=== PATIENT | female | born 1960 | race Caucasian/White ===

== ENCOUNTER 2020-09-13 05:45 | Inpatient (IN) | payer OTHER ==
[~2020-09-13] VITALS: Ht 165.1 cm; Wt 77.3 kg
[~2020-09-13 05:45] MED LIST: CAL MAG ZINC +1 EAC1 PO; FISH OIL 1,001000 MG PO; GALZIN50 MG PO; HAIR, SKIN & N1 EACH PO; LIPOTRIAD VISI1 EAC1 PO; METAFOLBIC TAB1 EACH PO; PRILOSEC OTC20 MG PO
--- NOTE | 2020-09-13 09:43 | NUR ---
09/13/20 0943 Olga Sigala 0934- PT TO PACU IN SUPINE POSITION EYES CLOSED WITH ORAL AIRWAY IN PLACE. PT DOES NOT RESPOND TO VERBAL STIMULI. BREATHING EASY AND UNLABORED. SPO2 >95% ON 6 L O2 VIA SIMPLE MASK. REPORT RECEIVED FROM FRIDA. 0942- PT CONTINUES TO SLEEP IN SUPINE POSITION WITH ORAL AIRWAY IN PLACE. BREATHING EASY AND UNLABORED. SPO2 >95% ON 6 L O2 VIA SIMPLE MASK. VSS.
--- NOTE | 2020-09-13 11:19 | NUR ---
PT IS BACK TO DS FROM PACU. SHE IS EMOTIONAL UPON HER RETURN. IS AT THE BEDSIDE. CALL LIGHT WITHIN REACH. WATER ON BEDSIDE TABLE. NO ADDITIONAL NEEDS AT THIS TIME.
--- NOTE | 2020-09-13 13:12 | NUR ---
PATIENT IS RESTING IN BED, ON ROOM AIR 100% VITALS ARE WITHIN PARAMETERS. PATIENT IS REPORTING 7/10 MID ABDOMINAL POST OP PAIN AND 800MG PO IBUPROFEN GIVEN WITH 2MG OF IV MORPHINE. LOWER MID-ABD INCISIONS IN INTACT WITH OCCLUSIVE SURGICAL DRESSING AND SEVERAL SMALL SPOTS OF RED DRAINAGE. PATIENT IS OTHERWISE RESTING WELL. IVF CHANGED TO IV PUMP AND IS LR @ 125. PATIENT DENIES OTHER NEEDS, PLAN TO ADVANCE DIET, CURRENTLY HAVING JELLO AND CRACKERS.
--- NOTE | 2020-09-13 14:00 | NUR ---
Spoke with Eduarda. She resides in [facility] with her spouse. They are Hay growers. Spouse is in down season and will stay home with her. She states she is very active. No DME. Plans on dc to home with her spouse.
--- NOTE | 2020-09-13 14:35 | NUR ---
WHILE CHECKING ON PT, PT STATED THAT SHE WAS HAVING RIGHT UPPER QUADRANT PAIN. PT STATES THAT THERE IS RARE PAIN IN HER LOWER ABDOMEN NEAR THE SURGICAL SITE. THIS RN ASSISTED PT WITH A FRONT WHEEL WALKER TO DO THREE LAPS IN PTS ROOM. PT TOLERATED WELL BUT THERE WAS ONLY A SLIGHT IMPROVEMENT IN GAS PAIN. THIS RN WILL RETURN WITH MEDS FOR PT
--- NOTE | 2020-09-13 14:45 | NUR ---
THIS RN IN PTS ROOM TO CHECK ON PT. PT STATES THAT SHE IS HAVING RIGHT UPPPER QUADRANT PAIN THAT FEELS SHARP. PT STATES THAT THE PAIN GETS BETTER WHEN SHE STRETCHES HER ARMS UP. THIS RN PROVIDED PT WITH GAS PAIN MEDS AND 1 PERCOCET. THIS RN PROVIDED PT WITH MORE WATER AND SNACKS
--- NOTE | 2020-09-13 16:25 | NUR ---
THIS RN IN PTS ROOM TO REASSESS PTS PAIN. PT STATES THAT HER PAIN IS MUCH MORE IMPROVED, PT STATES THAT SHE WAS ACUTALLY ABLE TO RELAX ENOUGH TO GET SOME SLEEP. THIS RN PROVIDED PT WITH ANOTHER HEAT PAD AND ANOTHER PILLOW FOR COMFORT.
--- NOTE | 2020-09-13 19:20 | NUR ---
SHIFT REPORT RECEIVED FROM ENRIQUE KNOWLES. PT RESTING IN BED, WATCHING TV. NO NEEDS AT THIS TIME.
--- NOTE | 2020-09-13 21:06 | NUR ---
PT ASSESSMENT COMPLETED. PRN PAIN MEDS PROVIDED FOR 8/10 ABD PAIN.SCHEDULED MEDS PROVIDED. MIDLINE INCISION HAS SEVERAL DRY AREAS OF BLOOD, WNL. PT STATES ABD MODERATELY DISTENDED. BOWEL TONES ACTIVE. XIE WNL. IV WNL, CDI, FLUSHED WELL. PT UP TO CHAIR. XIE EMPTIED. NO OTHER NEEDS AT THIS TIME. CALL LIGHT IN REACH.
--- NOTE | 2020-09-13 21:30 | NUR ---
PT CALLED D/T BEEPING IV PUMP, NEW BAG OF LR IS NOW INFUSING. PT DENIES FURTHER NEEDS. CALL LIGHT IS CLOSE.
--- NOTE | 2020-09-13 22:55 | NUR ---
PATIENT AMBULATED ONCE AROUND NURSE'S STATION LOOP. SBA WITH FWW. PATIENT WAS STABLE ON HER FEET, BUT SLOW DUE TO PAIN IN BOTH HER ABDOIMINAL AREA AND HER LEFT SHOLDER. PATIENT WAS ASSISTED BACK TO BED WITH BLANKETS FOR WARMTH, WARM COMPRESSES, AND A FRESH ICE WATER WAS GIVEN. PATIENT ASKED IF SHE COULD HAVE ANY MORE PAIN MEDICATION. BENSON RENTERIA NOTIFIED THAT PAIN MEDS WERE REQUESTED. CALL LIGHT IN REACH. NO OTHER NEEDS AT THIS TIME.
--- NOTE | 2020-09-14 00:06 | NUR ---
PT RESTING IN BED, EYES CLOSED. RR EVEN, UNLABORED. IV FLUIDS INFUSING PER ORDER. CALL LIGHT IN REACH.
--- NOTE | 2020-09-14 02:49 | NUR ---
ASSESSMENT COMPLETED. PT ABD PAIN /, PRN PAIN MEDS PROVIDED. MIDLINE INCISION HAS SCANT NEW BLOOD ON BANDAGE. MODERATE ABD DISTENTION, TENDER, BOWEL TONES ACTIVE. PT STATES SHE IS PASSING FLATUS. CMS INTACT. LUNGS CLEAR, HEART TONES REGULAR. JAY PALM IN ROOM TO TAKE VS AND I&O.
--- NOTE | 2020-09-14 03:37 | NUR ---
PT RESTING IN BED, EYES CLOSED. RR EVEN, UNLABORED. IV FLUIDS INFUSING PER ORDER. CALL LIGHT IN REACH.
--- NOTE | 2020-09-14 05:48 | NUR ---
SCHEDULED MED PROVIDED. VS AND I&O COMPLETED. ORJAS REMOVED WNL PER ORDER. NO OTHER NEEDS AT THIS TIME. CALL LIGHT IN REACH.
--- NOTE | 2020-09-14 07:30 | NUR ---
Shift report from Mariel KNOWLES included: Pt had an uneventful evening. Post surgery, midline dressing removed and incision site is now open to air. Pts oneill was also removed early this morning and pt is due to void. Pt is currently in bed, breathing even and unlabored, table and call light within reach.
--- NOTE | 2020-09-14 09:00 | NUR ---
Med pass and assessment completed, VSS, see charting. Pt able to take all meds without difficulty. Pt in bed, finishing breakfast, denies nausea and other needs at this time. Pt has call light and table within reach.
--- NOTE | 2020-09-14 10:00 | NUR ---
Rounding. Pt reports tolerable pain and no nausea. Pt getting up to chair. Pt denies needs at this time. Table and call light within reach.
--- NOTE | 2020-09-14 11:00 | NUR ---
Spoke with patient, she is walking in the stafford. States she is feeling great. No change in plan for dc.
--- NOTE | 2020-09-14 11:50 | NUR ---
This RN to room to assist ELEVATORS INSPECTOR in setting up heating pack device for pt. Pt was just up to ambulate and was able to walk once around the nurses stations. Pt up to chair, positioned to comfort. Pt given blanket, heating pad, fresh water, and hot tea as ordered. Pt denies further needs at this time. Pt in chair, table and call light within reach.
--- NOTE | 2020-09-14 13:37 | NUR ---
Rounding. Pt up to bathroom, New fluids hung. Pt back to chair, positioned to comfort. Table and call light within reach.
[2020-09-14] MEDS ORDERED: VITAMIN E200 UNI2 PO (16:16)
--- NOTE | 2020-09-14 16:17 | NUR ---
MED REC COMPLETE
--- NOTE | 2020-09-14 16:31 | NUR ---
Pt given PRN pain med for 5/10 pain in her abdomen. Pts midline dressing is still intact, moderate amount of darker red drainage along the dressing, not saturated through. Pt denies nausea at this time. Pt up in room, per request, table and call light within reach.
--- NOTE | 2020-09-14 19:05 | NUR ---
SHIFT REPORT RECEIVED FROM IZAIAHAZCEASAR NASCIMENTO AT BEDSIDE. pt AWAKE AND RESTING IN BED, IN ROOM. MIDLINE DRESSING INTACT, MILD SEROSANGUINEOUS SHADOWING NOTED, pt DENIES NAUSEA OR NEEDS. CALL LIGHT IN REACH, BOARD UPDATED.
--- NOTE | 2020-09-14 20:59 | NUR ---
PT CALLED AFTER USING THE RESTROOM. WALKED 2 LAPS AROUND THE BONILLA WITH HER SBA WITH FWW. ADMINISTERED 2 PERCOCET FOR 7/10 PAIN. PT STATES SHE FEELS THE GAS MOVING AROUND AND SOME BURNING SENSATION. ADMINISTERED HER SCHEDULED HEPARIN WELL. SHE IS TUCKED INTO BED WITH FRESH WATER AND VS & 1&O'S ENTERED. SCD'S ARE IN PLACE AND CALL LIGHT IS CLOSE. PT DENIES FURTHER NEEDS.
--- NOTE | 2020-09-14 22:00 | NUR ---
ASSESSMENT COMPLETE, SCHEDULED MOTRIN GIVEN (SEE EMAR). MIDLINE INCISION INTACT, FOAM DRESSING IN PLACE. MILD TO MODERATE SEROSANGUINEOUS SHADOWING NOTED, pt REPORTS TOLERABLE PAIN. DENIES NAUSEA. VSS, CALL LIGHT IN REACH.
--- NOTE | 2020-09-14 23:06 | NUR ---
pt used call light to ask for assistance into restroom, SBA, voided 1000ccs of clear, yellow urine. pt states she is having gas bubble pain, no further needs at this time.
--- NOTE | 2020-09-15 00:05 | NUR ---
ROUNDED ON pt, pt AWAKE AND DENIES NEEDS OR CONCERNS. CALL LIGHT IN REACH.
--- NOTE | 2020-09-15 04:00 | NUR ---
rounding on pt, pt reports increasing 4/10 pain, prn pain medication given (see emar). no changes to abd dressing, pt denies nausea. up sba to void and back in bed. fresh water at bedsdie. no further needs, call light in reach.
--- NOTE | 2020-09-15 06:19 | NUR ---
SCHEDULED MOTRIN GIVEN FOR 3/10 PAIN, SEE EMAR. NO FURTHER NEEDS, CALL LIGHT IN REACH.
--- NOTE | 2020-09-15 06:26 | NUR ---
IN TO ASST PT TO THE TOILET, 1PA/SBA, TOLERATES WELL WITH SOME SORENESS, NO FURTHER NEEDS AT THIS TIME, PT IS BACK IN BED
--- NOTE | 2020-09-15 09:00 | NUR ---
PT UP IN ROOM, ATE 100% OF BREAKFAST, NO NAUSEA, REPORTS GOOD PAIN CONTROL, OCCASIONAL ABD CRAMPING BUT IS NOW PASSING GAS. HOPES TO GO HOME THIS MORNING, IN GOOD SPIRITS, DENIES FURTHER NEEDS.
[2020-09-15] MEDS ORDERED: IBUPROFEN800 MG PO (10:20)
[2020-09-15] MEDS ORDERED: TYLENOL EXTRA500 MG PO (10:22)
[2020-09-15] MEDS ORDERED: OXYCODONE HCL5 MG PO (10:24)
[2020-09-15] MEDS ORDERED: ZOFRAN4 MG PO (10:26)
[2020-09-15] MEDS ORDERED: COLACE100 MG PO (10:27)
--- NOTE | 2020-09-15 10:56 | NUR ---
DR PHELAN WAS IN TO SEE PT, DISCHARGE ORDERS TO HOME NOTED.
--- NOTE | 2020-09-15 11:30 | NUR ---
SBA INTO SHOWER, TOLERATED WELL.
--- NOTE | 2020-09-15 14:17 | NUR ---
DISCHARGE INSTRUCTIONS REVIEWED WITH PATIENT, VERBALIZES UNDERSTANDING OF MEDICATIONS, SX TO REPORT AND FOLLOWUP APPOINTMENT, PHARMACY WAS ALSO IN AND SPOKE WITH PT. SHE IS IN GOOD SPIRITS, EXCITED TO GO HOME. CALLED FOR [facility] HOME, SCHEDULED IBUPROFEN GIVEN AND OXYCODONE FOR 6/10 PAIN. DENIES NAUSEA. TAKING FLUIDS WELL.
--- NOTE | 2020-09-19 07:50 | OR ---
[facility] [address], [place] [address] Signed DATE OF OPERATION: 09/13/2020 SURGEON: Paco Millan MD DIESEL LOCOMOTIVE CRANE OPERATOR: Demetri Elder DO PREOPERATIVE DIAGNOSIS: Right adnexal mass. POSTOPERATIVE DIAGNOSIS: Right adnexal mass with pelvic and abdominal adhesions. PROCEDURE: Laparoscopy, laparotomy, bilateral salpingo-oophorectomy, lysis of adhesions. ANESTHESIA: General ET. ESTIMATED BLOOD LOSS: 50 mL. DRAINS: Fountain catheter. INDICATIONS AND FINDINGS: The patient is a 60-year-old female 3, para 3, status post TVH many years ago for vaginal prolapse, who presented after a long absence of [facility] care of approximately 7 years and was found to have a large right adnexal mass. It appeared to be fairly simple on ultrasound and CT with a few fine septations. There was no evidence of any ascites or omental caking on her CT as well. Her CA-125 was normal. It was felt that possibly this could be addressed laparoscopically. At the time of surgery, exam under anesthesia revealed the ovary to be enlarged and actually above the umbilicus on the right side approximately 3 cm above. It was fairly mobile. On laparoscopy, there were adhesions of the omentum superiorly to the ovary, which were fairly fine as well as thick adhesions to the vaginal cuff on the right side. It was extremely large. The left The left ovary was tiny, approximately 1.5 cm in size. There were adhesions of the sigmoid to the vaginal cuff as well. There was no ascites present. There was no evidence of any other seeding. The surface of the right ovary was completely smooth. It did not rupture during surgery and was delivered intact. Electronically Signed By: PACO MLILAN MD 09/19/20 0750 PATIENT NAME: CARMINE WHITMORE OPERATIVE REPORT DATE OF : 64 REPORT #: [id number] PHYSICIAN: PACO MILLAN MD PCP: HUGO FLOOD MD REPORT IS CONFIDENTIAL AND NOT TO BE RELEASED WITHOUT AUTHORIZATION [facility] [address], [place] [address] Signed DESCRIPTION OF PROCEDURE: The patient was prepped and draped in the dorsal lithotomy position. A Fountain catheter was placed and a sponge stick placed in the vagina. Attention was directed above. The infraumbilical area was injected with 0.5% Marcaine plain. An incision was made with a knife and each layer serially elevated and incised until the fascia was opened and identified and stay sutures were placed. The peritoneum was opened bluntly. The scope was then placed after placement of Jad. The abdomen was then insufflated with carbon dioxide gas. The abdomen was appropriately distended. The pelvis and abdomen were evaluated and the extensive adhesions noted. It was felt that given the size and the amount of adhesions that an open procedure would be a better option with less chance of any rupture. Washings were obtained via the Jad. Following this, the Jad was removed and a midline incision was made with a knife. It was carried down through the fascia. The incision was extended superiorly and inferiorly. Muscles were already and the peritoneum was opened and the incision extended superiorly and inferiorly. Following this, the adhesions superiorly were lysed. The Praveen retractor was then placed and the patient's right infundibulopelvic ligament was identified and grasped with curved Z clamps x2. It was then divided. This was followed by free tie of 0 Vicryl followed by suture ligature of 0 Vicryl on the infundibulopelvic ligament. The ovarian side was suture ligated as well. The peritoneal adhesions were then taken on the lateral aspect down to the vaginal cuff. The adhesions were sharply lysed as well at the cuff. Following this, the ovary could be removed intact. The patient's right infundibulopelvic ligament was re-evaluated, there was some oozing around this. This area was regrasped with a Tonsil and right angle and free tied with another 0 Vicryl suture. The ureter was evaluated and found to be below and not compromised by the suture. Attention was then directed to the patient's left side. The adhesions of the sigmoid to the cuff and the pelvic sidewall were lysed sharply using the Metzenbaum scissors. The ovary itself was then seen. It was very small with a normal tube as well. The infundibulopelvic ligament was isolated, identified, and a window placed in the peritoneum. The infundibulopelvic ligament was then grasped x2 with curved Z clamps and divided. This was followed by free tie of 0 Vicryl followed by suture ligature of 0 Vicryl. Following this, the ovary itself could be peeled off the pelvic sidewall with sharp dissection. Following this, the abdomen was copiously irrigated and inspected and bleeding points on the raw areas were controlled with cautery. There was some bleeding in the space of Retzius, which responded to [id number] sutures of 2-0 chromic. There was quite a bit of raw area present just because of the extensive adhesions and Tisseel was sprayed over the vaginal cuff and at the sidewalls to aid in hemostasis. Following this, preparations were made for closure. The retractor was removed as were the lap tapes. The peritoneum was identified and closed with a running suture of 3-0 Vicryl. The muscles were not reapproximated. The fascia was closed from each end to the midline with a running suture of 0 PDS. The subcu tissue was irrigated, inspected and bleeding points were controlled with cautery. The skin edges were brought Electronically Signed By: PACO MILLAN MD 09/19/20 0750 PATIENT NAME: CARMINE WHITMORE OPERATIVE REPORT DATE OF : 64 REPORT #: [id number] PHYSICIAN: PACO MILLAN MD PCP: HUGO FLOOD MD REPORT IS CONFIDENTIAL AND NOT TO BE RELEASED WITHOUT AUTHORIZATION [facility] [address] [place] [id number] Signed together with interrupted sutures of 3-0 Vicryl. The skin was closed with nathaly. Following this, the vaginal sponge stick was removed. All sponge and needle counts were correct though a follow up abdominal/pelvic X Ray was done as there was a miscount on the needle drivers. There was no evidence of any retained instruments. She tolerated the procedure well and was taken to the recovery room in good condition. Paco Millan MD PJW/CHERELLE /[id number] cc: Dr. Clif Elder DO Copies: DEMETRI ELDER DO ~ Electronically Signed By: PACO MILLAN MD 09/19/20 0750 PATIENT NAME: CARMINE WHITMORE OPERATIVE REPORT DATE OF : 64 REPORT #: [id number] PHYSICIAN: PACO MILLAN MD PCP: HUGO FLOOD MD REPORT IS CONFIDENTIAL AND NOT TO BE RELEASED WITHOUT AUTHORIZATION
--- NOTE | 2020-09-19 09:18 | PATH ---
[facility] [address] [id number] Signed ORDERING PHYSICIAN: Valeria Millan MD PATIENT NAME: CARMINE WHITMORE GENDER: F : 1960 SPECIMEN(S): A ABDOMINAL WASHINGS GROSS DESCRIPTION: 70 ML OF CLEAR, COLORLESS FLUID IN CYTOLYT CLINICAL HISTORY: NO CLINICAL DATA PROVIDED LABORATORY PREPARATIONS: 1 MONOLAYER CYTOLOGIC INTERPRETATION: Pelvic washing: Negative for malignant cells. DESCRIPTION: The preparations contain mesothelial cells and rare inflammatory cells. Atypical cytologic findings are not encountered. SPECIMEN ADEQUACY: Satisfactory for Evaluation PERFORMING LABORATORY: Technical preparation was performed by [facility], [address] [place] [address] (Refuse Driver: Rogelio Miranda D.O.; CLIA#: [id number]). Professional interpretation was performed by [facility], [address] [address] (Refuse Driver: Jamaica Rolon MD; CLIA# [id number]). Diagnostician: Cici LEBLANC ([facility] Electronic Field Service Engineer Diagnostician: Jamaica Rolon MD Pathologist Electronically Signed 09/18/2020 Copies: PATIENT NAME: CARMINE WHITMORE PATHOLOGY DATE OF : 64 REPORT #: [id number] PHYSICIAN: JEAN PATHOLOGY PCP: HUGO FLOOD MD REPORT IS CONFIDENTIAL AND NOT TO BE RELEASED WITHOUT AUTHORIZATION [address] [place] [address] Signed ~ PATIENT NAME: CARMINE WHITMORE PATHOLOGY DATE OF : 64 REPORT #: [id number] PHYSICIAN: JEAN PATHOLOGY PCP: HUGO FLOOD MD REPORT IS CONFIDENTIAL AND NOT TO BE RELEASED WITHOUT AUTHORIZATION
--- NOTE | 2020-09-19 10:19 | PATH ---
[facility] [address], [place] [address] Signed SPECIMEN(S): A RIGHT OVARY AND TUBE SPECIMEN(S): B LEFT OVARY AND TUBE SPECIMEN SOURCE: A. RIGHT OVARY AND TUBE B. LEFT OVARY AND TUBE CLINICAL HISTORY: Laparoscopy with removal right ovarian mass and left ovary. FINAL PATHOLOGIC DIAGNOSIS: A. 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 - Fallopian tube with paratubal cyst. B. Ovary and fallopian tube, left, salpingo-oophorectomy: - Ovary with endosalpingiosis and surface fibrous adhesions. - Fallopian tube with no histopathologic abnormality. COMMENT: As part of [facility]' Quality Improvement Program, selected slides of this case were reviewed by another member of our pathology staff. NAL:NRT:cml:C2NR MICROSCOPIC EXAMINATION: Histologic sections of all submitted blocks are examined by light microscopy. These findings, together with the gross examination, support the pathologic diagnosis. GROSS DESCRIPTION: Two specimens are received in two containers, labeled "LV." A. The specimen, labeled "LV, right ovary and tube," is received in formalin and consists of ovary with attached fallopian tubes. The ovary weighs 2350 grams. The serosal surface is pink-sung, smooth and fluctuating. Specimen measures 23 x 17.5 x 17.0 cm. Sectioning through the specimen reveals a cyst that measures 22 cm in greatest dimension. The cyst is filled with a clear fluid. The inner surface of the cyst is smooth. No papillary excrescences are grossly identified. Within the larger cyst is a smaller clear fluid-filled cyst, 4.2 cm in greatest dimension. The inner surface of the smaller cyst is smooth. The fallopian tube shows fimbria and violaceous and smooth serosa. It measures 9.5 cm in length and 0.6 cm in diameter. PATIENT NAME: CARMINE WHITMORE PATHOLOGY DATE OF : 64 REPORT #: [id number] PHYSICIAN: JEAN PATHOLOGY PCP: HUGO FLOOD MD REPORT IS CONFIDENTIAL AND NOT TO BE RELEASED WITHOUT AUTHORIZATION [facility] [address], [place] [address] Signed Sectioning through the tube is unremarkable. Security Strategist sections are submitted as follows: (A1) Larger cyst wall (A2) Smaller cyst wall, fallopian tube Additional sections of ovarian cyst and fallopian tube fimbria are submitted in three additional cassettes (A3-A5) per Dr. Rolon request. MEDARDO (under the direct supervision of a pathologist) B. The specimen, labeled "LV, left ovary and fallopian tube," is received in formalin and consists of ovary with attached fallopian tube. The ovary measures 2.2 x 1.5 x 0.7 cm. The serosal surface is yellow-sung, smooth. Sectioning through the ovary reveals yellow-sung, homogenous tissue. Fallopian tube shows fimbria and violaceous and smooth serosa. It measures 3.5 x 0.7 cm. Security Strategist sections are submitted in cassettes (B1-B2). MEDARDO (under the direct supervision of a pathologist) The Gross Description was prepared using a voice recognition system. The report was reviewed for accuracy; however, sound-alike word errors, addition and/or deletions may occur. If there is any question about this report, please contact Client Services. PERFORMING LABORATORY: The technical component was performed by [facility], [address] [place] [id number] (Civil Engineer Helper: Shikha Hawkins MD; CLIA# [id number]). Professional interpretation was performed by [facility], [facility], [address] [place] [address] (CLIA# [id number]). Diagnostician: Jamaica Rolon MD Pathologist Electronically Signed 09/19/2020 Copies: ~ PATIENT NAME: CARMINE WHITMORE PATHOLOGY DATE OF : 64 REPORT #: [id number] PHYSICIAN: JEAN STEVENS PCP: HUGO FLOOD MD REPORT IS CONFIDENTIAL AND NOT TO BE RELEASED WITHOUT AUTHORIZATION
== END 2020-09-15 14:45 | disposition home or self-care (01) | DRG 743 ==
LOC: DS 05:45 → MS 12:35
PROVIDERS: ADMIT Obstetrics & Gynecology; ATTEND Obstetrics & Gynecology
PROC: 0DNW0ZZ Release Peritoneum, Open Approach (ICD-10-PCS; 2020-09-13)
PROC: 3E0T3BZ Introduction of Anesthetic Agent into Peripheral Nerves and Plexi, Percutaneous Approach (ICD-10-PCS; 2020-09-13)
PROC: 3E0T33Z Introduction of Anti-inflammatory into Peripheral Nerves and Plexi, Percutaneous Approach (ICD-10-PCS; 2020-09-13)
PROC: 0UJ84ZZ Inspection of Fallopian Tube, Percutaneous Endoscopic Approach (ICD-10-PCS; principal; 2020-09-13 06:45)
PROC: 0UT70ZZ Resection of Bilateral Fallopian Tubes, Open Approach (ICD-10-PCS; 2020-09-13 06:45)
PROC: 0UT20ZZ Resection of Bilateral Ovaries, Open Approach (ICD-10-PCS; 2020-09-13 06:45)
DX: N83.8 Other noninflammatory disorders of ovary, fallopian tube and broad ligament (principal); K66.0 Peritoneal adhesions (postprocedural) (postinfection); G89.18 Other acute postprocedural pain; K21.9 Gastro-esophageal reflux disease without esophagitis; Z53.31 Laparoscopic surgical procedure converted to open procedure; Z90.710 Acquired absence of both cervix and uterus; Z79.899 Other long term (current) drug therapy
CPT/HCPCS: 00840; 36415; 64448; 74018; 76942; 80048; 85025; J0330; J1100; J1170; J1644; J1885; J2001; J2250; J2270; J2405; J2704; J2765; J2795; J3010; J7121

== ENCOUNTER 2022-06-26 07:48 | Day surgery (SDC) | payer OTHER ==
[~2022-06-26] VITALS: Ht 165.1 cm; Wt 79.5 kg
[~2022-06-26 07:48] MED LIST changes: +COLACE100 MG PO; +IBUPROFEN800 MG PO; +LISINOPRIL-HCT1 EACH PO; +OXYCODONE HCL5 MG PO; +TOPROL XL25 MG; +TYLENOL EXTRA500 MG PO; +VITAMIN E200 UNI2 PO; +ZOFRAN4 MG PO
[2022-06-26] MEDS ORDERED: IBUPROFEN200 MG PO (08:20)
--- NOTE | 2022-06-26 12:23 | NUR ---
06/26/22 1223 Lala Travis 1214-PATIENT ARRIVED TO PACU ON 6L MASK RR EVEN AWAKE REPORTS PAIN 3/10 TO ABDOMEN DRESSING INTACT ICE APPLIED. SR. IVF INFUSING. WASHCLOTH PROVIDED TO PATIENT LIGHTS ARE BRIGHT. 1223-PATIENT REPORTS PAIN 4/10 WILL MEDICATE PER EMAR. PLACED ON RA RR EVEN 99%
--- NOTE | 2022-06-26 13:39 | NUR ---
PT USES CALL LIGHT FOR MORE WATER. ICED WATER REFILLED AND PUDDING PROVIDED. WARM BLANKETS WITH MYLA HUGGER ON WARM. SPOUSE IN ROOM AT THIS TIME. CALL LIGHT WITHIN REACH.
--- NOTE | 2022-06-26 14:17 | NUR ---
STEADY ON FEET WITH ONE PERSON STAND BY ASSIST FOR AMBULATION TO BR FOR UNMEASURED VOID. DENIES NAUSEA AND REPORTS 2/10 ABDOMINAL PAIN. RETURNED TO ROOM WHERE ASSISTS PATIENT WITH DRESSING. REVIEWED DISCHARGE INSTRUCTIONS WITH PATIENT AND SPOUSE AT BEDSIDE AND TEACH BACK USED.
--- NOTE | 2022-06-27 06:49 | OR ---
[facility] [address], [place] [address] Signed DATE OF OPERATION: 06/26/2022 SURGEON: Brandon Mercado MD PREOPERATIVE DIAGNOSIS: Periumbilical incisional hernia (4 cm). POSTOPERATIVE DIAGNOSIS: Periumbilical incisional hernia (4 cm). PROCEDURE: Primary periumbilical incisional herniorrhaphy with intraabdominal Ventralex mesh (8 cm). ESTIMATED BLOOD LOSS: None. INDICATIONS: Carmine is a 62-year-old female, who I have known for some time. I have helped to take care of her . 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 She noticed bulging at the umbilicus and off to the right side. She said it has been increasing in size. She learned the purchasing abdominal binder, which has been helping. She had been to her primary care provider. She had been referred to my office. A CT scan of abdomen and pelvis confirmed a 4 cm fascial defect. The hernia contained small bowel. In the office, we could partially reduce the hernia on the right side, but not the left. She wanted to wait until the summer was over and they were done with their farming. She returns now to have her surgery. There were no new issues since I had seen her last. Her actually underwent an almost identical surgery with myself. I gave them the another booklet on hernias. We looked at that carefully together. She understands the nature of her incisional hernia. We had reviewed the difference between a primary suture repair and a mesh repair. She understands the expected intraop and postop course. There is risk including, but not limited to bleeding, infection, scarring, change in contour of the skin, damage to bowel, infection of mesh requiring removal, recurrent hernias, and chronic pain. She had expressed understanding and wished to proceed. DESCRIPTION OF PROCEDURE: I met with Carmine and her in the preop area. We all agreed on her periumbilical hernia. We marked that appropriately. After this, she was taken into the operating Electronically Signed By: BRANDON MERCADO MD 06/27/22 0649 PATIENT NAME: CARMINE WHITMORE OPERATIVE REPORT DATE OF : 64 REPORT #: [id number] PHYSICIAN: BRANDON MERCADO MD PCP: HUGO MENEZES MD REPORT IS CONFIDENTIAL AND NOT TO BE RELEASED WITHOUT AUTHORIZATION [facility] [address] [place] [id number] Signed room and placed in the supine position under general endotracheal tube anesthesia. She was given preoperative antibiotics along with subcutaneous heparin. SCDs were utilized. Fountain catheter was inserted with return of clear yellow urine without difficulty. She was then prepped and draped in the usual sterile fashion. We simply extended her midline incision up and above the umbilicus. We carried this down and around the hernia bluntly and with the cautery. We opened the hernia sac and found that the bowel was reduced at this point. We divided the hernia sac from the fascial edges with the cautery. The fascial defect was indeed about 4 cm mostly transversely. We therefore chose an 8 cm round Ventralex mesh, and we placed that inside the abdomen, brought up, flushed against the posterior abdominal wall. We closed the fascial defect transversely with interrupted #1 Prolene [id number] sutures. Several passes of the suture went through the mesh to hold it in place. The tab on the mesh was cut, flushed with the abdominal wall. We then injected local anesthetic in the abdominal wall and subcutaneous tissues. The wound was irrigated and suctioned out until clear. We brought the umbilicus back down the midline with interrupted 2-0 PDS suture. We closed some of the space with interrupted 3-0 Monocryl sutures. We then brought the dermis back together very carefully with interrupted zero subcuticular Monocryl sutures. The skin edges reapproximated with a running 5-0 fast absorbing plain gut suture. Dry gauze and tape were then applied. Her Fountain catheter had been removed. She was awakened from anesthesia, extubated in the OR, and taken to the recovery room in stable condition. Brandon Mercado MD ALB/MODL /[id number] cc: Brandon Mercado MD Patient Chart Hugo Menezes MD Copies: BRANDON MERCADO MD Electronically Signed By: BRANDON MERCADO MD 06/27/22 0649 PATIENT NAME: CARMINE WHITMORE OPERATIVE REPORT DATE OF : 64 REPORT #: [id number] PHYSICIAN: BRANDON MERCADO MD PCP: HUGO MENEZES MD REPORT IS CONFIDENTIAL AND NOT TO BE RELEASED WITHOUT AUTHORIZATION [facility] [address] [place], [place] [address] Signed HUGO MENEZES MD ~ Electronically Signed By: BRANDON MERCADO MD 06/27/22 0649 PATIENT NAME: CARMINE WHITMORE OPERATIVE REPORT DATE OF : 64 REPORT #: [id number] PHYSICIAN: BRANDON MERCADO MD PCP: HUGO MENEZES MD REPORT IS CONFIDENTIAL AND NOT TO BE RELEASED WITHOUT AUTHORIZATION
== END 2022-06-26 14:25 | disposition home or self-care (01) ==
LOC: DS 07:48
PROVIDERS: ATTEND Colon & Rectal Surgery
PROC: 0WUF0JZ Supplement Abdominal Wall with Synthetic Substitute, Open Approach (ICD-10-PCS; principal; 2022-06-26 09:20)
DX: K43.2 Incisional hernia without obstruction or gangrene (principal); K21.9 Gastro-esophageal reflux disease without esophagitis; I10 Essential (primary) hypertension
CPT/HCPCS: C1781; J0131; J0690; J1100; J1644; J1885; J2001; J2405; J2704; J2710; J3010; J7121